=== PATIENT | male | born 1965 | race Caucasian/White ===

== ENCOUNTER → 2018-08-29 | Outpatient (CLI) | payer MEDICAID ==
--- NOTE | 2018-08-29 15:37 | REP ---
Clinical: thoracic pain. Technique: AP, lateral, and swimmers views. Findings: Alignment and kyphosis is maintained. Vertebral bodies intact. No acute fracture / compression injury or subluxation. Mild/moderate degenerative changes include endplate sclerosis, minimal disc space narrowing, and marginal osteophytes. Impression: Mild/moderate degenerative changes. No acute fracture / compression injury or subluxation. Electronically Signed by Oj Renteria MD 08/29/2018 03:28 P
--- NOTE | 2018-08-29 16:03 | REP ---
CERVICAL SPINE, FOUR VIEWS: HISTORY: Back pain. The cervical spine is visualized from C1 to the C6-7 level in the lateral radiograph. There is no acute fracture or subluxation. The C5-6 intervertebral disc is decreased in height consistent with disc degeneration. Osteophytes are present on C5 and C6. There is loss of the normal lordotic curve. IMPRESSION: Degenerative change as described above. Electronically Signed by Neil Zaragoza MD 08/29/2018 04:10 P
== END ==
LOC: M RAD 14:44
PROVIDERS: ATTEND Nurse Practitioner Adult Health
DX: M50.322 Other cervical disc degeneration at C5-C6 level (principal); M51.35 Other intervertebral disc degeneration, thoracolumbar region

== ENCOUNTER → 2018-12-11 | Outpatient (CLI) | payer MEDICAID ==
--- NOTE | 2018-12-11 09:16 | REP ---
RIGHT UPPER QUADRANT ULTRASOUND: Real-time sonographic evaluation of the right upper quadrant was performed. Gallbladder demonstrates no evidence of intraluminal sludge or calculi, wall thickening or pericholecystic fluid. There is no intrahepatic or extrahepatic biliary dilatation. Common bile duct measuring 5 mm. Liver is heterogenous and increased in echotexture, compatible with diffuse fibrofatty infiltration. No grossly liver or pancreatic mass is seen, study is somewhat limited due to suboptimal penetration of the liver and the bowel gas. Right kidney demonstrates no hydronephrosis with normal size 13.9 cm in length. IMPRESSION: Diffuse fibrofatty infiltration of the liver. Electronically Signed by Toney Simon MD 12/12/2018 12:59 P
== END ==
LOC: M RAD 06:54
PROVIDERS: ATTEND Nurse Practitioner Adult Health
DX: K76.0 Fatty (change of) liver, not elsewhere classified (principal); R94.5 Abnormal results of liver function studies

== ENCOUNTER → 2021-04-05 | Outpatient (CLI) | payer OTHER ==
--- NOTE | 2021-04-05 13:07 | REP ---
INDICATION: NICOTINE DEPEND. COMPARISON: None. TECHNIQUE: Axial noncontrast images from the thoracic inlet to the upper abdomen using low-dose lung screening technique (LDCT). As per the protocol only lung window images were sent to the read station for interpretation. FINDINGS: There are no abnormal nodules, masses, or opacities. Grossly, the mediastinum and pulmonary bri are within normal limits. Grossly, the imaged upper abdomen and imaged osseous structures are within normal limits. IMPRESSION: Lung rads category [address] low-dose [address] CT of the lungs. Follow-up as per the revised Fleischner society criteria. <Electronically signed by Horacio Seth > 04/05/21 [id number]
== END ==
LOC: M RAD 10:39
PROVIDERS: ATTEND Nurse Practitioner Family
DX: Z12.2 Encounter for screening for malignant neoplasm of respiratory organs (principal); F17.210 Nicotine dependence, cigarettes, uncomplicated

== ENCOUNTER → 2021-06-26 | Outpatient (CLI) | payer OTHER ==
[~2021-06-26] MED LIST: GABA-282 PO; MELO7.5T35 PO; OMEG1CAP85 PO; SIMV40TA20 PO; VITMTA PO
== END ==
LOC: M LABSMTC 12:06
PROVIDERS: ATTEND Anesthesiology
DX: Z01.812 Encounter for preprocedural laboratory examination (principal); Z20.822 Contact with and (suspected) exposure to COVID-19

== ENCOUNTER 2021-06-30 08:01 | Day surgery (SDC) | payer OTHER ==
[~2021-06-30] VITALS: Ht 185.4 cm; Wt 133.7 kg
[~2021-06-30 08:01] MED LIST changes: +NS 1,000 ML IV ONE
[2021-06-30] MEDS ORDERED: METOPROLOL 5 MG/5 ML VIAL As Ordered ONE (09:09)
[2021-06-30] MEDS ORDERED: LIDOCAINE 2% 100MG/5ML SDV (FOR ANES.) As Ordered ONE (09:09)
[2021-06-30] MEDS ORDERED: propofoL 200 MG/20 ML VIAL As Ordered ONE ×3 (09:09→09:40)
[2021-06-30 10:15] VITALS: BP 160/75
== END 2021-06-30 10:31 | disposition home or self-care (01) ==
LOC: M OPP 08:01
PROVIDERS: ATTEND Internal Medicine Gastroenterology
DX: Z12.11 Encounter for screening for malignant neoplasm of colon (principal); K63.5 Polyp of colon; K57.30 Diverticulosis of large intestine without perforation or abscess without bleeding; K64.8 Other hemorrhoids; Z79.899 Other long term (current) drug therapy; F17.210 Nicotine dependence, cigarettes, uncomplicated

== ENCOUNTER → 2021-10-19 | Outpatient (CLI) | payer OTHER ==
[~2021-10-19] MED LIST changes: +GASTROGRAFIN SOLUTION 30ML (Q9963) As Ordered ONE; +ISOVUE-370 76% 100ML VIAL As Ordered ONE; -NS 1,000 ML IV ONE
== END ==
LOC: M RAD 08:24
PROVIDERS: ATTEND Nurse Practitioner Family
DX: R10.84 Generalized abdominal pain (principal); K76.0 Fatty (change of) liver, not elsewhere classified; K57.90 Diverticulosis of intestine, part unspecified, without perforation or abscess without bleeding; E27.8 Other specified disorders of adrenal gland
CPT/HCPCS: 74178; Q9963; Q9967

== ENCOUNTER → 2021-12-12 | Outpatient (CLI) | payer OTHER ==
[~2021-12-12] MED LIST changes: -GASTROGRAFIN SOLUTION 30ML (Q9963) As Ordered ONE; -ISOVUE-370 76% 100ML VIAL As Ordered ONE
[2021-12-13 04:34] LABS: HEPATITIS B SURFACE ANTIBODY NEGATIVE (POSITIVE); HIV 1&2 SCREEN CENTAUR NEGATIVE (NEGATIVE)
[2021-12-13 10:44] LABS: HEPATITIS B CORE ANTIBODY IGM NEGATIVE (NEGATIVE)
== END ==
LOC: M LAB 14:42
PROVIDERS: ATTEND Nurse Practitioner Family
DX: R94.5 Abnormal results of liver function studies (principal)

== ENCOUNTER → 2022-06-05 | Outpatient (CLI) | payer OTHER ==
[2022-06-05 09:51] LABS: BASO % 0.4 % (0.0-1.0); EOS # 0.2 10^3/uL (0.0-0.5); HEMATOCRIT 49.6 % (42.0-52.0); HEMOGLOBIN 16.4 g/dl (13.5-17.5); LYMPH # 2.4 10^3/uL (1.5-5.0); LYMPH % 31.2 % (24.0-44.0); MEAN CORPUSCULAR HEMOGLOBIN 30.7 pg (27.0-33.0); MEAN CORPUSCULAR HGB CONC 33.1 g/dl (32.0-36.5); MEAN CORPUSCULAR VOLUME 92.9 fl (80.0-96.0); MONO # 0.6 10^3/uL (0.0-0.8); MONO % 7.3 % (2.0-8.0); NEUTROPHILS # 4.4 10^3/uL (1.5-8.5); NEUTROPHILS % 58.8 % (36.0-66.0); PLATELET COUNT, AUTOMATED 152 10^3/uL (150-450); RED BLOOD COUNT 5.34 10^6/uL (4.30-6.10); WHITE BLOOD COUNT 7.5 10^3/uL (4.0-10.0)
[2022-06-05 10:22] LABS: HEMOGLOBIN A1c 6.3 % (4.0-6.0)
[2022-06-05 10:31] LABS: MAGNESIUM LEVEL 1.8 MG/DL (1.8-2.4)
[2022-06-05 10:32] LABS: ALBUMIN 3.8 G/DL (3.2-5.2); ALKALINE PHOSPHATASE 85 U/L (46-116); ALT/SGPT 138 U/L (7.0-40); AST/SGOT 104 U/L (<34); BILIRUBIN,TOTAL 0.6 MG/DL (0.3-1.2); BLOOD UREA NITROGEN 26 MG/DL (9-23); CALCIUM LEVEL 9.6 MG/DL (8.5-10.1); CARBON DIOXIDE LEVEL 27 MMOL/L (20-31); CHLORIDE LEVEL 103 MMOL/L (98-107); CHOLESTEROL LEVEL 275 MG/DL (<200); CHOLESTEROL RISK RATIO 5.39 (<5); CREATININE FOR GFR 0.72 MG/DL (0.70-1.30); GLOMERULAR FILTRATION RATE > 60.0 (>56); GLUCOSE, FASTING 117 MG/DL (60-100); LDL CHOLESTEROL 185.2 MG/DL (<100); NON-HDL-C 224 MG/DL; POTASSIUM SERUM 4.2 MMOL/L (3.5-5.1); SODIUM LEVEL 139 MMOL/L (136-145); TOTAL PROTEIN 7.5 G/DL (5.7-8.2); TRIGLYCERIDES LEVEL 194 MG/DL (<150)
[2022-06-05 10:34] LABS: THYROID STIMULATING HORMONE 3.942 uIU/ML (0.55-4.78)
== END ==
LOC: M LAB 09:13
PROVIDERS: ATTEND Nurse Practitioner Family
DX: Z79.899 Other long term (current) drug therapy (principal)

== ENCOUNTER → 2022-06-05 | Outpatient (CLI) | payer OTHER ==
[2022-06-05 10:11] LABS: MAGNESIUM LEVEL 1.8 MG/DL (1.8-2.4)
[2022-06-05 10:12] LABS: CALCIUM LEVEL 9.6 MG/DL (8.5-10.1); PHOSPHORUS LEVEL 2.8 MG/DL (2.5-4.9)
[2022-06-05 10:15] LABS: TOTAL 25(OH) VITAMIN D 13.3 NG/ML (20.0-100.0)
[2022-06-05 10:31] LABS: PTH INTACT 43.9 PG/ML (18.5-88.0)
== END ==
LOC: M LAB 09:15
PROVIDERS: ATTEND Nurse Practitioner Family
DX: E83.52 Hypercalcemia (principal)

== ENCOUNTER → 2022-09-05 | Outpatient (CLI) | payer OTHER ==
[2022-09-05 11:02] LABS: CALCIUM LEVEL 9.5 MG/DL (8.5-10.1)
== END ==
LOC: M LAB 09:05
PROVIDERS: ATTEND Nurse Practitioner Family
DX: E83.52 Hypercalcemia (principal)

== ENCOUNTER → 2022-09-05 | Outpatient (CLI) | payer OTHER | LOC: M RAD 09:01 | PROVIDERS: ATTEND Internal Medicine Gastroenterology | DX: K75.81 Nonalcoholic steatohepatitis (NASH) (principal) ==

== ENCOUNTER → 2023-01-08 | Day surgery (SDC) | payer OTHER ==
[~2023-01-08] VITALS: Ht 185.4 cm; Wt 136.1 kg
[~2023-01-08] MED LIST changes: +B-1100TA2 PO; +FOLI1TAB11 PO; +FURO20TA2 PO; +LOPI600T PO; +MAGN400T35 PO; +METF-838 PO; +NS 1,000 ML IV ONE; +OMEP40CA4 PO; +TIZA4CAP6 PO
== END | disposition home or self-care (01) ==
LOC: M OPP 11:39
PROVIDERS: ATTEND Internal Medicine Gastroenterology
DX: I85.00 Esophageal varices without bleeding (principal); Z53.8 Procedure and treatment not carried out for other reasons

== ENCOUNTER 2023-02-07 07:05 | Day surgery (SDC) | payer OTHER ==
[~2023-02-07] VITALS: Ht 185.4 cm; Wt 127.0 kg
[~2023-02-07 07:05] MED LIST changes: +GABA600T4 PO; +MAGN400T2 PO
[2023-02-07] MEDS ORDERED: propofoL 200 MG/20 ML VIAL As Ordered ONE (07:07)
[2023-02-07] MEDS ORDERED: LIDOCAINE 2% 100MG/5ML SDV (FOR ANES.) As Ordered ONE (07:07)
[2023-02-07] MEDS ORDERED: fentaNYL 100 MCG/2 ML INJECTION As Ordered ONE (08:14)
[2023-02-07 09:23] VITALS: BP 116/57; O2SAT 96
== END 2023-02-07 09:28 | disposition home or self-care (01) ==
LOC: M OPP 07:05
PROVIDERS: ATTEND Internal Medicine Gastroenterology
DX: K74.60 Unspecified cirrhosis of liver (principal); K29.70 Gastritis, unspecified, without bleeding
CPT/HCPCS: 43239; 88305; J3010

== ENCOUNTER → 2023-03-19 | Outpatient (CLI) | payer OTHER ==
[~2023-03-19] MED LIST changes: -NS 1,000 ML IV ONE
[2023-03-19 08:56] LABS: PLATELET COUNT, AUTOMATED 148 10^3/uL (150-450)
== END ==
LOC: M RAD 08:19
PROVIDERS: ATTEND Registered Nurse
DX: Z12.2 Encounter for screening for malignant neoplasm of respiratory organs (principal); F17.200 Nicotine dependence, unspecified, uncomplicated; D69.6 Thrombocytopenia, unspecified

== ENCOUNTER → 2023-04-08 | Outpatient (CLI) | payer OTHER | LOC: M RAD 07:09 | PROVIDERS: ATTEND Internal Medicine Gastroenterology | DX: K74.60 Unspecified cirrhosis of liver (principal) ==

== ENCOUNTER → 2023-06-25 | Outpatient (REF) | payer OTHER | LOC: M LAB REF 14:54 | PROVIDERS: ATTEND Nurse Practitioner Family | DX: B96.81 Helicobacter pylori [H. pylori] as the cause of diseases classified elsewhere (principal) ==

== ENCOUNTER → 2023-08-01 | Outpatient (CLI) | payer OTHER ==
[2023-08-01 09:48] LABS: HEMOGLOBIN 16.1 g/dl (13.5-17.5); MEAN CORPUSCULAR HEMOGLOBIN 29.7 pg (27.0-33.0); MEAN CORPUSCULAR HGB CONC 33.5 g/dl (32.0-36.5); MEAN CORPUSCULAR VOLUME 88.6 fl (80.0-96.0); PLATELET COUNT, AUTOMATED 120 10^3/uL (150-450); RED BLOOD COUNT 5.42 10^6/uL (4.30-6.10); WHITE BLOOD COUNT 5.4 10^3/uL (4.0-10.0)
[2023-08-01 09:49] LABS: HEMOGLOBIN A1c 7.7 % (4.0-6.0)
[2023-08-01 10:10] LABS: ALBUMIN 3.7 G/DL (3.2-5.2); ALKALINE PHOSPHATASE 80 U/L (46-116); ALT/SGPT 48 U/L (7.0-40); AST/SGOT 35 U/L (<34); BILIRUBIN,TOTAL 0.7 MG/DL (0.3-1.2); BLOOD UREA NITROGEN 18 MG/DL (9-23); CALCIUM LEVEL 8.7 MG/DL (8.5-10.1); CARBON DIOXIDE LEVEL 27 MMOL/L (20-31); CHLORIDE LEVEL 108 MMOL/L (98-107); CHOLESTEROL LEVEL 274 MG/DL (<200); CHOLESTEROL RISK RATIO 6.91 (<5); CREATININE FOR GFR 0.66 MG/DL (0.70-1.30); GLOMERULAR FILTRATION RATE > 60.0 (>56); GLUCOSE, FASTING 192 MG/DL (60-100); HDL CHOLESTEROL 39.6 MG/DL (>40); LDL CHOLESTEROL 171.8 MG/DL (<100); MAGNESIUM LEVEL 1.7 MG/DL (1.8-2.4); NON-HDL-C 234.4 MG/DL; POTASSIUM SERUM 3.9 MMOL/L (3.5-5.1); SODIUM LEVEL 140 MMOL/L (136-145); TOTAL PROTEIN 6.7 G/DL (5.7-8.2); TRIGLYCERIDES LEVEL 313 MG/DL (<150)
== END ==
LOC: M LAB 08:47
PROVIDERS: ATTEND Registered Nurse
DX: E11.65 Type 2 diabetes mellitus with hyperglycemia (principal); E78.00 Pure hypercholesterolemia, unspecified; D69.6 Thrombocytopenia, unspecified; K74.60 Unspecified cirrhosis of liver; E83.42 Hypomagnesemia

== ENCOUNTER → 2024-08-26 | Outpatient (CLI) | payer OTHER ==
[~2024-08-26] MED LIST changes: +GABA-1172 PO; +GABA-1490 PO; -GABA-282 PO; -GABA600T4 PO; +OMEG-28 PO; -OMEG1CAP85 PO; +TIZA4CAP3 PO; -TIZA4CAP6 PO
== END ==
LOC: M RAD 08:13
PROVIDERS: ATTEND Internal Medicine Gastroenterology
DX: K74.60 Unspecified cirrhosis of liver (principal)

== ENCOUNTER → 2024-09-16 | Outpatient (CLI) | payer OTHER ==
[2024-09-16 09:09] LABS: HEMATOCRIT 46.9 % (42.0-52.0); HEMOGLOBIN 15.9 g/dl (13.5-17.5); MEAN CORPUSCULAR HEMOGLOBIN 30.4 pg (27.0-33.0); MEAN CORPUSCULAR HGB CONC 33.9 g/dl (32.0-36.5); MEAN CORPUSCULAR VOLUME 89.7 fl (80.0-96.0); PLATELET COUNT, AUTOMATED 122 10^3/uL (150-450); RED BLOOD COUNT 5.23 10^6/uL (4.30-6.10); WHITE BLOOD COUNT 6.5 10^3/uL (4.0-10.0)
[2024-09-16 09:20] LABS: HEMOGLOBIN A1c 5.9 % (4.0-6.0)
[2024-09-16 09:25] LABS: PROSTATIC SPECIFIC AG MONITOR 0.55 NG/ML (< 4.00)
[2024-09-16 09:29] LABS: ALBUMIN 3.6 G/DL (3.2-5.2); ALKALINE PHOSPHATASE 73 U/L (40-129); ALT/SGPT 29 U/L (7.0-40); AST/SGOT 20 U/L (<34); BILIRUBIN,TOTAL 0.6 MG/DL (0.3-1.2); BLOOD UREA NITROGEN 21 MG/DL (9-23); CALCIUM LEVEL 9.3 MG/DL (8.5-10.1); CARBON DIOXIDE LEVEL 27 MMOL/L (20-31); CHLORIDE LEVEL 108 MMOL/L (98-107); CHOLESTEROL LEVEL 281 MG/DL (<200); CHOLESTEROL RISK RATIO 6.82 (<5); CREATININE FOR GFR 0.75 MG/DL (0.70-1.30); GLOMERULAR FILTRATION RATE > 90.0 (>56); GLUCOSE, FASTING 164 MG/DL (60-100); HDL CHOLESTEROL 41.2 MG/DL (>40); MAGNESIUM LEVEL 1.7 MG/DL (1.8-2.4); NON-HDL-C 239.8 MG/DL; POTASSIUM SERUM 4.2 MMOL/L (3.5-5.1); SODIUM LEVEL 142 MMOL/L (136-145); TOTAL PROTEIN 6.9 G/DL (5.7-8.2); TRIGLYCERIDES LEVEL 402 MG/DL (<150)
[2024-09-16 16:41] LABS: CREATININE, URINE 139.4 MG/DL
== END ==
LOC: M LAB 08:18
PROVIDERS: ATTEND Registered Nurse
DX: E11.65 Type 2 diabetes mellitus with hyperglycemia (principal); E78.00 Pure hypercholesterolemia, unspecified; D69.6 Thrombocytopenia, unspecified; E83.42 Hypomagnesemia; Z12.5 Encounter for screening for malignant neoplasm of prostate

== ENCOUNTER 2024-10-12 07:37 | Day surgery (SDC) | payer OTHER ==
[~2024-10-12] VITALS: Ht 185.4 cm; Wt 126.2 kg
[~2024-10-12 07:37] MED LIST changes: +LIDOCAINE 2% 100MG/5ML SDV (FOR ANES.) As Ordered ONE; +propofoL 500 MG/50 ML VIAL As Ordered ONE
[2024-10-12] MEDS ORDERED: fentaNYL 100 MCG/2 ML INJECTION As Ordered ONE (09:39)
[2024-10-12 10:26] VITALS: TEMP 97.2
[2024-10-12 10:45] VITALS: BP 127/58; O2SAT 96
== END 2024-10-12 10:49 | disposition home or self-care (01) ==
LOC: M OPP 07:37
PROVIDERS: ATTEND Internal Medicine Gastroenterology
DX: Z12.11 Encounter for screening for malignant neoplasm of colon (principal); D12.4 Benign neoplasm of descending colon; K57.30 Diverticulosis of large intestine without perforation or abscess without bleeding; K74.60 Unspecified cirrhosis of liver; Z86.0100 Personal history of colon polyps, unspecified; K76.0 Fatty (change of) liver, not elsewhere classified; E78.00 Pure hypercholesterolemia, unspecified; G62.9 Polyneuropathy, unspecified; F17.210 Nicotine dependence, cigarettes, uncomplicated; Z79.899 Other long term (current) drug therapy
CPT/HCPCS: 43235; 45385; 88305; J3010

== ENCOUNTER → 2025-04-02 | Outpatient (CLI) | payer OTHER ==
[~2025-04-02] MED LIST changes: -LIDOCAINE 2% 100MG/5ML SDV (FOR ANES.) As Ordered ONE; -propofoL 500 MG/50 ML VIAL As Ordered ONE
[2025-04-02 10:18] LABS: ALT/SGPT 46.0 U/L (7.0-40); AST/SGOT 42.0 U/L (<34)
== END ==
LOC: M RAD 08:37
PROVIDERS: ATTEND Internal Medicine Gastroenterology
DX: K74.60 Unspecified cirrhosis of liver (principal); D37.6 Neoplasm of uncertain behavior of liver, gallbladder and bile ducts

== ENCOUNTER → 2025-04-02 | Outpatient (CLI) | payer OTHER ==
[2025-04-02 09:58] LABS: ESTIMATED AVERAGE GLUCOSE 174.0 MG/DL (60-110)
[2025-04-02 10:14] LABS: PROSTATIC SPECIFIC AG MONITOR 0.59 NG/ML (< 4.00)
[2025-04-02 10:16] LABS: ALT/SGPT 47 U/L (7.0-40); AST/SGOT 43 U/L (<34); CALCIUM LEVEL 9.7 MG/DL (8.5-10.1); CARBON DIOXIDE LEVEL 26 MMOL/L (20-31); CHLORIDE LEVEL 110 MMOL/L (98-107); CHOLESTEROL LEVEL 271 MG/DL (<200); CHOLESTEROL RISK RATIO 6.10 (<5); CREATININE FOR GFR 0.83 MG/DL (0.70-1.30); GLOMERULAR FILTRATION RATE > 90.0 (>56); LDL CHOLESTEROL 175.8 MG/DL (<100); MAGNESIUM LEVEL 1.7 MG/DL (1.8-2.4); NON-HDL-C 226.6 MG/DL; POTASSIUM SERUM 4.3 MMOL/L (3.5-5.1); SODIUM LEVEL 144 MMOL/L (136-145); TRIGLYCERIDES LEVEL 254 MG/DL (<150)
[2025-04-02 12:22] LABS: PLATELET COUNT, AUTOMATED 134 10^3/uL (150-450)
== END ==
LOC: M RAD 08:40
PROVIDERS: ATTEND Registered Nurse
DX: R60.9 Edema, unspecified (principal); K74.60 Unspecified cirrhosis of liver; D37.6 Neoplasm of uncertain behavior of liver, gallbladder and bile ducts